=== PATIENT | female | born 1955 | race Caucasian/White ===

== ENCOUNTER 2019-03-14 10:16 | Emergency (ER) | payer BC ==
[2019-03-14] MEDS ORDERED: Dexamethasone 4 MG TAB ONE (11:08)
[2019-03-14] MEDS ORDERED: Azithromycin 250 MG TAB ONE (11:08)
[2019-03-14] MEDS ORDERED: Benzonatate 100 MG CAP ONE (11:08)
== END 2019-03-14 11:05 | disposition home or self-care (01) ==
LOC: MADERS 10:16
DX: J18.9 Pneumonia, unspecified organism (principal)
CPT/HCPCS: 87804; 99283; J8540

== ENCOUNTER 2021-12-22 09:23 | Outpatient (CLI) | payer BC, SELFPAY | END 2021-12-22 09:24 | disposition home or self-care (01) | LOC: MADLAB 09:23 → MADRAD 09:24 | PROVIDERS: ATTEND Family Medicine | DX: M25.551 Pain in right hip (principal); M16.11 Unilateral primary osteoarthritis, right hip ==

== ENCOUNTER 2023-04-14 15:54 | Outpatient (CLI) | payer MEDICARE | END 2023-04-14 15:55 | disposition home or self-care (01) | LOC: MADRAD 15:54 | PROVIDERS: ATTEND Family Medicine | DX: M25.551 Pain in right hip (principal); M16.11 Unilateral primary osteoarthritis, right hip ==

== ENCOUNTER 2025-01-06 15:39 | Emergency (ER) | payer MEDICARE ==
[2025-01-06 16:20] LABS: #Basophils 0.1 thou/uL (0.0-0.2); #Eosinophils 0.2 thou/uL (0.0-0.7); #Lymphocytes 2.2 thou/uL (1.20-3.40); #Monocytes 0.4 thou/uL (0.11-0.59); #Neutrophils 2.9 thou/uL (1.40-6.50); %Basophils 1.4 % (0.0-1.0); %Eosinophils 3.0 % (0.0-10.0); %Lymphocytes 38.7 % (21.0-51.0); %Monocytes 6.5 % (0.0-10.0); %Neutrophils 50.4 % (42.0-75.0); Hematocrit 46.8 % (36.0-47.0); Hemoglobin 14.7 g/dL (12.0-16.0); Mean Corpuscular Hemoglobin 28.4 pg (27.0-31.0); Mean Corpuscular Volume 90.8 fl (78.0-98.0); Platelet Count 337 10x3/uL (130-400); Red Blood Cell (RBC) Count 5.15 mill/uL (4.20-5.40); White Blood Cell (WBC) Count 5.7 10x3/uL (4.8-10.8)
[2025-01-06 16:32] LABS: Troponin I Less than 0.010 ng/mL (< 0.028)
[2025-01-06 16:37] LABS: ALT (SGPT) 32 U/L (Less than 34); AST (SGOT) 30 U/L (11-34); Albumin 3.9 g/dL (3.1-4.5); Alkaline Phosphatase 92 U/L (40-110); Anion Gap 16 mmol/L (10-20); BUN (Urea Nitrogen) 13 mg/dL (9.8-20.1); Bilirubin, Total 0.5 mg/dL (0.3-1.2); Calc. Creatinine Clearance 0 mL/min (70-130); Calcium 9.3 mg/dL (7.8-10.44); Carbon Dioxide 19 mmol/L (23-31); Chloride 109 mmol/L (98-107); Globulin 2.8 g/dL (2.4-3.5); Glucose 108 mg/dL (80-115); Potassium 4.3 mmol/L (3.5-5.1); Sodium 140 mmol/L (136-145)
[2025-01-06] MEDS ORDERED: Ketorolac Tromethamine 30 MG (1 mL) VIAL ONE (16:51)
[2025-01-06 18:05] LABS: Glucose, Urine (Dipstick) Negative (Negative); Leukocyte Negative (Negative); Protein, Urine (Dipstick) Negative (Neg-Trace); Specific Gravity, Urine 1.015 (1.005-1.030)
[2025-01-06 18:09] LABS: Bacteria/HPF Rare-Few HPF (None Seen); CAUTI Indications for Culture Dysuria,urgency,freq; RBC/HPF 0-3 HPF (0-3); WBC/HPF 0-3 HPF (0-3)
[2025-01-06 18:11] LABS: Urine Culture Reflex No No
== END 2025-01-06 19:26 | disposition home or self-care (01) ==
LOC: MADERS 15:39
DX: R07.82 Intercostal pain (principal)
CPT/HCPCS: 71045; 80053; 81001; 84484; 85025; 85379; 93005; 94760; J1885